=== PATIENT | female | born 2000 | race African-American/Black ===

== ENCOUNTER 2020-04-02 12:38 | Emergency (ER) | payer OTHER, SELFPAY ==
--- NOTE | 2020-04-02 12:40 | ECG_ITS ---
Measurements Intervals [place] Rate: 97 P: 32 DE: 125 QRS: 44 QRSD: 74 T: 10 QT: 322 QTc: 411 Interpretive Statements SINUS RHYTHM MINIMAL Q WAVES- ANTEROLAT/INF LEADS NONSPECIFIC T-WAVE ABNORMALITY- ANT/INF LEADS BASELINE ARTIFACT- I, II, AVR, AVL, V1 BORDERLINE ECG Electronically Signed On 04-02-2020 12:52:11 CDT by Rolan Pandey D.O.
[2020-04-02 12:41] VITALS: BP 122/76; PULSE 101; RESP 18; TEMP 36.9; O2SAT 100
[2020-04-02 12:48] VITALS: PULSE 103
[2020-04-02 12:54] LABS: Glucose Point of Care 106 (65-105)
--- NOTE | 2020-04-02 13:01 | ED.SYNCOPE ---
HPI - Syncope General Chief Complaint: Syncope Stated Complaint: NEAR SYNCOPE Time Seen by Provider: 04/02/20 12:48 History of Present Illness HPI narrative: Patient is a 19-year-old female who presents ER with concerns of syncope. Reports she got to work and stood up to get out of her car while she was walking and she began to feel lightheaded. No spinning her rotational dizziness. Mild nausea. She sat down and she thinks she lost consciousness. No loss of urine. No seizure activity noted by EMS. Patient denies any blood in her underwear. She is currently 23 weeks along in her . She was diagnosed with anemia and a UTI couple days ago. She has been started on vitamins as well as an antibiotic. She reports she ate some [place] toast sticks today with that is been all. She reports she tries to stay hydrated. No trauma to her head or pain at this time. She has felt the baby move since the episode. Related Data Home Medications Medication Instructions Recorded Confirmed 04/02/20 nitrofurantoin monohyd/m-cryst 04/02/20 Allergies Allergy/AdvReac Type Severity Reaction Status Date / Time No Known Allergies Allergy Verified 04/02/20 12:50 Review of Systems Review of Systems: All systems reviewed & are unremarkable except as noted in HPI and below Constitutional: Constitutional: Denies chills, Denies fever(s) and Denies weakness ENT: Denies nasal congestion and Denies sore throat Neurologic: Denies dizziness, Reports syncope and Denies headache(s) PMFSH Past Medical History Medical History (Updated 04/02/20 @ 15:11 by Sundar Dinero MD) Healthy female adult Surgical History Surgical History (Updated 04/02/20 @ 13:04 by Sundar Dinero MD) History of salpingectomy right Social History Social History (Updated 04/02/20 @ 13:05 by Sundar Dinero MD) Smoking status: Never smoker Substance use: never Exam Narrative: Exam Narrative: GENERAL: Well-appearing, well-nourished, and in no acute distress. HEAD: Normocephalic, atraumatic. ENT: Mucous membranes moist. CHEST: Clear to auscultation. No respiratory distress. HEART: Regular rate and rhythm. Normal peripheral pulses. ABDOMEN: Soft, nontender, nondistended. Gravid abdomen. EXTREMITIES: Normal range of motion. No edema. SKIN: Warm, dry, no rash. NEURO: Alert and oriented x3. Course Course Emergency Course: Patient informed of results. Hydrated. Normal heart tones. Discharge home. Vital Signs Vital signs: Vital Signs Temperature 98.5 F 04/02/20 12:41 Pulse Rate 101 H 04/02/20 12:41 Respiratory Rate 18 04/02/20 12:41 Blood Pressure 122/76 04/02/20 12:41 Pulse Oximetry 100 04/02/20 12:41 Temperature 98.5 F 04/02/20 12:41 Pulse Rate 89 04/02/20 13:53 Respiratory Rate 22 H 04/02/20 13:53 Blood Pressure 112/78 04/02/20 13:53 Pulse Oximetry 100 04/02/20 13:53 MDM - Syncope Lab Data Result diagrams: 04/02/20 13:10 04/02/20 13:10 Labs: Lab Results 04/02/20 04/02/20 04/02/20 Range/Units 12:50 13:10 13:10 WBC 5.9 (4.5-10.0) K/mm3 RBC 3.42 L (4.2-5.4) M/mm3 Hgb 9.9 L (12.0-15.0) g/dL Hct 30.9 L (37.0-47.0) % MCV 90.4 (80-100) fl MCH 28.9 (26-34) pg MCHC 32.0 (32-36) g/dl RDW 12.6 (11.5-14.5) % Plt Count 182 (150-375) k/mm3 MPV 11.7 H (7.4-10.4) fl Immature Gran % (Auto) 0.7 H (0-0.5) % Neut % (Auto) 67.1 (45.5-73.1) % Lymph % (Auto) 23.6 (18.3-44.2) % [place] % (Auto) 7.9 (2.6-8.5) % Eos % (Auto) 0.5 (0-4.4) % Baso % (Auto) 0.2 (0.2-1.2) % Lymph # (Auto) 1.40 (0.9-3.2) K/mm3 [place] # (Auto) 0.5 (0.1-0.6) K/mm3 Eos # (Auto) 0.0 (0-0.3) K/mm3 Baso # (Auto) 0.0 (0.0-0.1) K/mm3 Abs Immat Gran (auto) 0.04 H (0.00-0.031) K/mm3 Absolute Neuts (auto) 4.0 (1.3-6.7) K/mm3 Absolute Nucleated RBC 0.0 (0.0-0.012) K/
[2020-04-02] MEDS: SODIUM CHLORIDE 0.9% IV 1,000 ML 999 ML IV CONT (13:11)
[2020-04-02 13:18] LABS: Basophils Percent Auto 0.2 % (0.2-1.2); Eosinophils Percent Auto 0.5 % (0-4.4); Hematocrit 30.9 % (37.0-47.0); Hemoglobin 9.9 g/dL (12.0-15.0); Immature Granulocyte Absolute 0.04 K/mm3 (0.00-0.031); Immature Granulocyte Percent A 0.7 % (0-0.5); Lymphocytes Percent Auto 23.6 % (18.3-44.2); Mean Corpuscular Hemoglobin 28.9 pg (26-34); Mean Corpuscular Volume 90.4 fl (80-100); Mean Platelet Volume 11.7 fl (7.4-10.4); Monocytes Absolute Auto 0.5 K/mm3 (0.1-0.6); Monocytes Percent Auto 7.9 % (2.6-8.5); Neutrophils Percent Auto 67.1 % (45.5-73.1); Platelet Count Result 182 k/mm3 (150-375); Red Blood Count 3.42 M/mm3 (4.2-5.4); Red Cell Distribution Width 12.6 % (11.5-14.5); White Blood Count 5.9 K/mm3 (4.5-10.0)
[2020-04-02 13:35] LABS: Anion Gap 10.6 mmol/L (7-16); Blood Urea Nitrogen 8 mg/dL (8-21); Calcium 8.7 mg/dL (8.9-10.7); Carbon Dioxide 21 mmol/L (22-30); Chloride 106 mmol/L (98-107); Estimated CRCL calculation 152 ml/min; Estimated Glomerular Filt Rate > 60; Glucose 111 mg/dL (65-105); Potassium 3.6 mmol/L (3.4-5.0); Sodium 134 mmol/L (134-143)
[2020-04-02 13:47] VITALS: BP 112/78; BP 124/54; BP 127/71; PULSE 100; PULSE 99
[2020-04-02 13:53] VITALS: BP 112/78; PULSE 89; RESP 22; O2SAT 100
[2020-04-02 14:09] LABS: Add Urine Microscopic? YES; Appearance Urine Cloudy (Clear); Bacteria Urine Trace /hpf; Bilirubin Urine Negative (Negative); Blood Urine Negative (Negative); Color Urine Yellow (Yellow); Glucose Urine UA Negative (Negative); Ketones Urine Negative (Negative); Leukocyte Esterase Ur 3+ LEU/UL (Negative); Mucus Urine Rare /lpf; Nitrate Urine Negative (Negative); Protein Urine Negative (Negative); Specific Grav Ur 1.011 (1.001-1.035); Squamous Epithelial Cell Urine Many /hpf (Few); Transitional Epi Cells Urine Rare /hpf (None Seen); Urobilinogen Urine Negative mg/dL (<2.0); WBC Urine 0-3 /hpf
[2020-04-02 16:09] VITALS: BP 106/60; PULSE 82; RESP 19; O2SAT 100
== END 2020-04-02 16:14 | disposition home or self-care (01) ==
PROVIDERS: Emergency Provider Emergency Medicine
DX: O26.892 Other specified pregnancy related conditions, second trimester (principal); R55 Syncope and collapse; Z3A.23 23 weeks gestation of pregnancy
CPT/HCPCS: 36415; 80048; 81001; 85025; 93005; 96360; 99284; J7030

== ENCOUNTER 2020-05-12 13:43 | Observation (INO) | payer OTHER, MEDICAID, SELFPAY ==
--- NOTE | 2020-05-12 13:43 | OBADM ---
This patient, Heike Simon, admitted to the OB room [facility] for observation. Patient/family oriented to hospital policies and general routines including ID bracelet, bed and alarms, visiting hours, pain management, procedures, bathroom and other care routines, personal items, smoking policy, room service/diet, and visiting hours. Patient/Family are encouraged to report perceived risks to care and to ask questions if they do not understand what they are told or what they should do.
[2020-05-12 13:57] VITALS: BP 116/102; PULSE 78; BMI 24.4
[2020-05-12 13:59] VITALS: BP 123/74; PULSE 88; RESP 16; TEMP 36.5
[2020-05-12 14:27] LABS: Add Urine Microscopic? YES; Appearance Urine Cloudy (Clear); Bacteria Urine Trace /hpf; Bilirubin Urine Negative (Negative); Blood Urine Negative (Negative); Color Urine Yellow (Yellow); Glucose Urine UA Negative (Negative); Ketones Urine Negative (Negative); Leukocyte Esterase Ur 1+ LEU/UL (Negative); Mucus Urine Heavy /lpf; Nitrate Urine Negative (Negative); Protein Urine 2+ mg/dL (Negative); Squamous Epithelial Cell Urine Many /hpf (Few); Urobilinogen Urine Negative mg/dL (<2.0)
--- NOTE | 2020-05-12 14:52 | PC.NURSE ---
Updated Dr. Abarca of patient UA results. Discharge orders received.
--- NOTE | 2020-05-12 15:08 | PC.NURSE ---
Discharge instructions reviewed with patient. Patient states understanding of discharge instructions. Patient instructed to call OB office to schedule follow-up appointment. Patient states understanding and denies questions. Patient left ambulating from OB unit at 1508.
--- NOTE | 2020-05-14 07:11 | P.PNOB_ITS ---
OB - Triage/Final Diagnosis Evaluation Laboratory results: Laboratory Tests 05/12/20 14:14 Urine Color Yellow Urine Appearance Cloudy H Urine pH 6.0 Ur Specific [place] 1.030 Urine Protein 2+ H Urine Glucose (UA) Negative Urine Ketones Negative Ur Blood (Man) Negative Urine Nitrate Negative Urine Bilirubin Negative Urine Urobilinogen Negative Leukocyte Esterase Rfl 1+ H Urine RBC 3-5 H Urine WBC 7-9 H Ur Squamous Epith Cells Many H Urine Bacteria Trace Urine Mucus Heavy H Final Diagnosis (1) Abdominal pain affecting : Code(s): O26.899 - Other specified related conditions, unspecified trimester; R10.9 - Unspecified abdominal pain Status: Acute (2) Lightheadedness: Code(s): R42 - Dizziness and giddiness Status: Acute
== END 2020-05-12 15:08 | disposition home or self-care (01) ==
PROVIDERS: Admitting Provider Obstetrics & Gynecology; Visit Provider Obstetrics & Gynecology
DX: O26.899 Other specified pregnancy related conditions, unspecified trimester (principal); R10.9 Unspecified abdominal pain
CPT/HCPCS: 59025; 81001; 87086; G0378; G0379

== ENCOUNTER 2020-10-17 23:42 | Emergency (ER) | payer OTHER, SELFPAY ==
--- NOTE | ~2020-10-17 | CT_ITS ---
EXAMINATION: CT abdomen pelvis w con INDICATION: Right lower quadrant pain TECHNIQUE: Computed tomographic images of the abdomen and pelvis were obtained after the administrati on of 100 cc of Omnipaque 350 intravenous contrast. The dose-length product (DLP) was 174.67 mGy-cm. Automated exposure control and iterative reconstruction technique were employed. COMPARISON: None available FINDINGS: The lung bases are clear. The heart size is normal. The liver, spleen, pancreas, gallbladde r, and adrenal glands are normal. The kidneys are unremarkable. No pathologically enlarged abdominal or pelvic lymph nodes are identified. There is no free intraperitoneal gas or evidence of bowel obstr uction. The appendix is normal. There is diastases of the rectus abdominal muscles. There is fluid in the right adnexa. The ovary is not well demonstrated. IMPRESSION: 1. Small volume of fluid in the right adnexa of unclear origin, possibly ruptured ovarian cyst. Consi fly further evaluation with pelvic ultrasound. Reviewed, dictated and finalized at location A. ANGE UNDERWRITING CONSULTANT IMPRESSION: 1. Small volume of fluid in the right adnexa of unclear origin, possibly ruptur ed ovarian cyst. Consider further evaluation with pelvic ultrasound.
[2020-10-17 23:49] VITALS: BP 113/90; PULSE 83; RESP 16; TEMP 36.6; O2SAT 100
[2020-10-18] MEDS: SODIUM CHLORIDE 0.9% IV 1,000 ML 999 ML IV CONT (00:21)
[2020-10-18] MEDS: ONDANSETRON INJ 4 MG/2 ML VIAL IV PUSH (00:21)
[2020-10-18 00:27] LABS: Basophils Percent Auto 0.4 % (0.2-1.2); Eosinophils Percent Auto 0.8 % (0-4.4); Hematocrit 39.4 % (37.0-47.0); Hemoglobin 12.4 g/dL (12.0-15.0); Immature Granulocyte Absolute 0.01 K/mm3 (0.00-0.031); Immature Granulocyte Percent A 0.2 % (0-0.5); Lymphocytes Absolute Auto 2.77 K/mm3 (0.9-3.2); Lymphocytes Percent Auto 55.1 % (18.3-44.2); Mean Corpuscular HGB Conc 31.5 g/dl (32-36); Mean Corpuscular Hemoglobin 27.5 pg (26-34); Mean Corpuscular Volume 87.4 fl (80-100); Mean Platelet Volume 12.4 fl (7.4-10.4); Monocytes Absolute Auto 0.4 K/mm3 (0.1-0.6); Monocytes Percent Auto 8.2 % (2.6-8.5); Neutrophils Absolute Auto 1.8 K/mm3 (1.3-6.7); Neutrophils Percent Auto 35.3 % (45.5-73.1); Platelet Count Result 243 k/mm3 (150-375); Red Blood Count 4.51 M/mm3 (4.2-5.4); Red Cell Distribution Width 12.9 % (11.5-14.5)
[2020-10-18 00:37] LABS: Add Urine Microscopic? NO; Appearance Urine Clear (Clear); Bilirubin Urine Negative (Negative); Blood Urine Negative (Negative); Color Urine Yellow (Yellow); Glucose Urine UA Negative (Negative); Ketones Urine Negative (Negative); Leukocyte Esterase Ur Negative LEU/UL (Negative); Nitrate Urine Negative (Negative); Protein Urine Negative (Negative); Specific Grav Ur 1.024 (1.001-1.035); Urobilinogen Urine Negative mg/dL (<2.0)
[2020-10-18 00:42] LABS: Alanine Aminotransferase 20 U/L (4-35); Albumin Level 4.6 g/dL (3.5-5.1); Alkaline Phosphatase 55 U/L (38-126); Anion Gap 8 mmol/L (8-16); Aspartate Amino Transferase 27 U/L (14-36); Bilirubin,Total 0.1 mg/dL (0.2-1.3); Blood Urea Nitrogen 15 mg/dL (7-17); Carbon Dioxide 27 mmol/L (22-30); Chloride 106 mmol/L (98-107); Estimated CRCL calculation 81 ml/min; Estimated Glomerular Filt Rate > 60; Glucose 95 mg/dL (65-105); Lipase 296 U/L (23-300); Potassium 3.9 mmol/L (3.4-5.0); Sodium 141 mmol/L (137-145)
--- NOTE | 2020-10-18 00:59 | ED.GENADULT ---
HPI - General Adult General Chief complaint: Abdominal Pain Stated complaint: pelvic pain Time Seen by Provider: 10/17/20 23:53 History of Present Illness HPI narrative: Patient is a 20-year-old female who presents the emergency department with chief complaint of right lower quadrant abdominal pain. Patient reports that she is several months reports that she has prior history of a fallopian tube being removed on the right after she had had a ectopic . Patient states that she started having discomfort in the right lower quadrant region reports that it is worsened with movement and improved with rest. The patient denies fever denies vaginal discharge denies dysuria denies flank pain. Related Data Home Medications Medication Instructions Recorded Confirmed Daily 1 pkg PO DAILY 05/12/20 05/12/20 ferrous sulfate [Iron (ferrous 325 mg PO DAILY 05/12/20 05/12/20 sulfate)] Allergies Allergy/AdvReac Type Severity Reaction Status Date / Time No Known Allergies Allergy Verified 04/02/20 12:50 Review of Systems Review of Systems: Narrative: A 10 system review of systems was completed on the patient and is negative except for what is stated in the HPI. Nursing and ancillary documentation was reviewed. [facility] Past Medical History Medical History Healthy female adult Surgical History Surgical History History of salpingectomy right Social History Social History Smoking status: Never smoker Substance use: never Exam Narrative: Exam Narrative: GENERAL: Well-appearing, well-nourished, and in no acute distress. HEAD: Normocephalic, atraumatic. EYES: PERRLA and EOMI. ENT: Nares clear, no rhinorrhea or epistaxis. Mucous membranes moist. NECK: Supple. CHEST: Clear to auscultation. No respiratory distress. HEART: Regular rate and rhythm. No murmur heard. Normal peripheral pulses. ABDOMEN: Soft, mild tenderness to palpation in the right lower quadrant, nondistended, normal active bowel sounds. EXTREMITIES: Normal range of motion. No edema. SKIN: Warm, dry, no rash. NEURO: No focal deficits. Alert and oriented x3. PSYCH: Normal mood and affect. Course Vital Signs Vital signs: Vital Signs Temperature 36.6 C 10/17/20 23:49 Pulse Rate 83 10/17/20 23:49 Respiratory Rate 16 10/17/20 23:49 Blood Pressure 113/90 10/17/20 23:49 Pulse Oximetry 100 10/17/20 23:49 Temperature 36.6 C 10/17/20 23:49 Pulse Rate 83 10/17/20 23:49 Respiratory Rate 16 10/17/20 23:49 Blood Pressure 113/90 10/17/20 23:49 Pulse Oximetry 100 10/17/20 23:49 Medical Decision Making Vital Signs Vital Signs: Vital Signs Temperature 36.6 C 10/17/20 23:49 Pulse Rate 83 10/17/20 23:49 Respiratory Rate 16 10/17/20 23:49 Blood Pressure 113/90 10/17/20 23:49 Pulse Oximetry 100 10/17/20 23:49 Temperature 36.6 C 10/17/20 23:49 Pulse Rate 83 10/17/20 23:49 Respiratory Rate 16 10/17/20 23:49 Blood Pressure 113/90 10/17/20 23:49 Pulse Oximetry 100 10/17/20 23:49 Lab Data Result diagrams: 10/18/20 00:18 10/18/20 00:18 Labs: Lab Results 10/18/20 10/18/20 10/18/20 Range/Units 00:18 00:18 00:18 WBC 5.0 (4.5-10.0) K/mm3 RBC 4.51 (4.2-5.4) M/mm3 Hgb 12.4 (12.0-15.0) g/dL Hct 39.4 (37.0-47.0) % MCV 87.4 (80-100) fl MCH 27.5 (26-34) pg MCHC 31.5 L (32-36) g/dl RDW 12.9 (11.5-14.5) % Plt Count 243 (150-375) k/mm3 MPV 12.4 H (7.4-10.4) fl Immature Gran % (Auto) 0.2 (0-0.5) % Neut % (Auto) 35.3 L (45.5-73.1) % Lymph % (Auto) 55.1 H (18.3-44.2) % [place] % (Auto) 8.2 (2.6-8.5) % Eos % (Auto) 0.8 (0-4.4) % Baso % (Auto) 0.4 (0.2-1.2) % Lymph # (Auto) 2.7
--- NOTE | 2020-10-18 01:27 | PC.NURSE ---
pt ambulated to bathroom w/ no difficulty.
[2020-10-18 01:40] VITALS: BP 111/82; PULSE 90; RESP 16; O2SAT 99
== END 2020-10-18 01:41 | disposition home or self-care (01) ==
PROVIDERS: Emergency Provider Emergency Medicine
DX: N83.201 Unspecified ovarian cyst, right side (principal); R10.31 Right lower quadrant pain
CPT/HCPCS: 36415; 74177; 80053; 81003; 81025; 83690; 85025; 96361; 96374; 99284; J2405; J7030; Q9967